=== PATIENT | male | born 2005 | race Caucasian/White ===

== ENCOUNTER 2024-03-31 12:35 | Emergency (ER) | payer BC, OTHER ==
[~2024-03-31] VITALS: Ht 175.3 cm; Wt 73.1 kg
[2024-03-31] MEDS ORDERED: MELO15TA28 PO (14:45)
[2024-03-31 14:47] VITALS: BP 133/70; TEMP 97; O2SAT 99
== END 2024-03-31 14:52 | disposition home or self-care (01) ==
LOC: M ED 12:35
DX: S93.402A Sprain of unspecified ligament of left ankle, initial encounter (principal); Y92.9 Unspecified place or not applicable; Y93.67 Activity, basketball; Y99.9 Unspecified external cause status; Z79.899 Other long term (current) drug therapy

== ENCOUNTER 2024-06-28 20:49 | Emergency (ER) | payer BC ==
[~2024-06-28] VITALS: Ht 175.3 cm; Wt 75.4 kg
[~2024-06-28 20:49] MED LIST: MELO15TA28 PO
[2024-06-29 01:54] VITALS: BP 140/89; TEMP 97; O2SAT 99
== END 2024-06-29 05:39 | disposition left against medical advice (07) ==
LOC: M ED 20:49
DX: Z53.21 Procedure and treatment not carried out due to patient leaving prior to being seen by health care provider (principal)

== ENCOUNTER 2024-10-14 09:41 | Outpatient (RCR) | payer OTHER | END 2024-10-19 | LOC: M PT 09:41 | PROVIDERS: ATTEND Physician Assistant | DX: M54.50 Low back pain, unspecified (principal); R20.2 Paresthesia of skin; R53.1 Weakness; M54.6 Pain in thoracic spine; R20.0 Anesthesia of skin; M54.2 Cervicalgia ==

== ENCOUNTER 2024-11-11 12:45 | Outpatient (RCR) | payer OTHER | END 2024-11-19 | LOC: M PT 12:45 | PROVIDERS: ATTEND Physician Assistant | DX: M54.50 Low back pain, unspecified (principal); M54.2 Cervicalgia ==

== ENCOUNTER 2025-01-19 06:21 | Emergency (ER) | payer OTHER ==
[~2025-01-19] VITALS: Ht 175.3 cm; Wt 75.4 kg
[2025-01-19 09:49] LABS: BASO % 0.7 % (0.0-1.0); EOS # 0.2 10^3/uL (0.0-0.5); EOS % 2.8 % (0.0-3.0); HEMATOCRIT 46.9 % (42.0-52.0); LYMPH # 1.4 10^3/uL (1.5-5.0); LYMPH % 24.3 % (24.0-44.0); MEAN CORPUSCULAR HEMOGLOBIN 28.9 pg (27.0-33.0); MEAN CORPUSCULAR HGB CONC 34.1 g/dl (32.0-36.5); MEAN CORPUSCULAR VOLUME 84.8 fl (80.0-96.0); MONO # 0.3 10^3/uL (0.0-0.8); MONO % 5.2 % (2.0-8.0); NEUTROPHILS # 3.8 10^3/uL (1.5-8.5); NEUTROPHILS % 66.8 % (36.0-66.0); PLATELET COUNT, AUTOMATED 229 10^3/uL (150-450); RED BLOOD COUNT 5.53 10^6/uL (4.30-6.10); WHITE BLOOD COUNT 5.6 10^3/uL (4.0-10.0)
[2025-01-19] MEDS: KETOROLAC 60MG 2ML VIAL IM ONE (10:00)
[2025-01-19] MEDS: CYCLOBENZAPRINE 10MG TABLET PO ONE (10:00)
[2025-01-19 10:13] LABS: BLOOD UREA NITROGEN 13 MG/DL (9-23); CALCIUM LEVEL 9.6 MG/DL (8.5-10.1); CARBON DIOXIDE LEVEL 29 MMOL/L (20-31); CHLORIDE LEVEL 107 MMOL/L (98-107); GLUCOSE, FASTING 88 MG/DL (60-100); POTASSIUM SERUM 4.2 MMOL/L (3.5-5.1); SODIUM LEVEL 143 MMOL/L (136-145)
[2025-01-19] MEDS ORDERED: IBUP80TA PO (10:25)
[2025-01-19] MEDS ORDERED: CYCL-707 PO (10:25)
[2025-01-19 10:46] VITALS: BP 126/67; TEMP 98.5; O2SAT 99
== END 2025-01-19 10:57 | disposition home or self-care (01) ==
LOC: M ED 06:21
DX: M51.16 Intervertebral disc disorders with radiculopathy, lumbar region (principal); S39.012A Strain of muscle, fascia and tendon of lower back, initial encounter; Y92.9 Unspecified place or not applicable; Y93.9 Activity, unspecified; Y99.9 Unspecified external cause status; F10.10 Alcohol abuse, uncomplicated; Z79.1 Long term (current) use of non-steroidal anti-inflammatories (NSAID); Z79.899 Other long term (current) drug therapy
CPT/HCPCS: 70450; 72110; 72125; 80048; 85025; 96372; 99283; J1885

== ENCOUNTER 2025-01-24 11:52 | Emergency (ER) | payer OTHER ==
[~2025-01-24] VITALS: Ht 175.3 cm; Wt 72.6 kg
[~2025-01-24 11:52] MED LIST changes: +CYCL-707 PO; +IBUP80TA PO
[2025-01-24 12:34] LABS: BASO % 0.5 % (0.0-1.0); EOS # 0.1 10^3/uL (0.0-0.5); EOS % 2.3 % (0.0-3.0); HEMOGLOBIN 16.7 g/dl (13.5-17.5); LYMPH # 1.5 10^3/uL (1.5-5.0); LYMPH % 26.5 % (24.0-44.0); MEAN CORPUSCULAR HEMOGLOBIN 28.8 pg (27.0-33.0); MEAN CORPUSCULAR HGB CONC 34.1 g/dl (32.0-36.5); MEAN CORPUSCULAR VOLUME 84.6 fl (80.0-96.0); MONO # 0.3 10^3/uL (0.0-0.8); MONO % 5.7 % (2.0-8.0); NEUTROPHILS # 3.7 10^3/uL (1.5-8.5); NEUTROPHILS % 64.8 % (36.0-66.0); PLATELET COUNT, AUTOMATED 246 10^3/uL (150-450); RED BLOOD COUNT 5.79 10^6/uL (4.30-6.10); WHITE BLOOD COUNT 5.8 10^3/uL (4.0-10.0)
[2025-01-24 14:14] LABS: ALKALINE PHOSPHATASE 91 U/L (40-129); ALT/SGPT 26 U/L (7.0-40); AST/SGOT 26 U/L (<34); BILIRUBIN,DIRECT 0.4 MG/DL (<0.4); BILIRUBIN,TOTAL 1.3 MG/DL (0.3-1.2); BLOOD UREA NITROGEN 15 MG/DL (9-23); CALCIUM LEVEL 9.9 MG/DL (8.5-10.1); CARBON DIOXIDE LEVEL 26 MMOL/L (20-31); CHLORIDE LEVEL 106 MMOL/L (98-107); CK-MB VALUE MASS 2.4 NG/ML (<3.6); CPK CREATINE PHOSPHOKINASE 221 U/L (46-171); CREATININE FOR GFR 1.09 MG/DL (0.70-1.30); GLUCOSE, FASTING 97 MG/DL (60-100); MAGNESIUM LEVEL 2.1 MG/DL (1.8-2.4); MB/CK RELATIVE INDEX 1.08 (< OR =4); POTASSIUM SERUM 4.5 MMOL/L (3.5-5.1); SODIUM LEVEL 142 MMOL/L (136-145); TOTAL PROTEIN 8.2 G/DL (5.7-8.2)
[2025-01-24] MEDS: NS (Normal Saline) 0.9% 1,000 ML IV ONE (16:04)
[2025-01-24] MEDS: ACETAMINOPHEN *IV* 1,000 MG in IV 1 EA IV ONE (16:04)
[2025-01-24] MEDS: KETOROLAC 30 MG/ML 1ML VIAL IV ONE (16:04)
[2025-01-24 16:30] VITALS: TEMP 97
[2025-01-24] MEDS: methylPREDNISolone 125MG 2ML VIAL IV ONE (17:49)
[2025-01-24 20:24] LABS: C REACTIVE PROTEIN QUANTITATIV < 0.50 MG/DL (<1.0)
[2025-01-24 20:31] LABS: ERYTHROCYTE SEDIMENTATION RATE 4 mm/hr (0-15)
[2025-01-24 20:45] VITALS: BP 140/69
[2025-01-24] MEDS ORDERED: PRED20TA PO (20:51)
[2025-01-24] MEDS ORDERED: HOLTER MONITOR XX (20:51)
[2025-01-24 21:00] VITALS: O2SAT 96
== END 2025-01-24 21:18 | disposition home or self-care (01) ==
LOC: M ED 11:52
DX: R55 Syncope and collapse (principal); M13.0 Polyarthritis, unspecified
CPT/HCPCS: 80048; 80076; 82550; 82553; 83735; 84484; 85025; 85652; 86140; 93005; 96365; 96366; 96375; 99285; J0131; J1885; J2919

== ENCOUNTER → 2025-02-21 | Outpatient (CLI) | payer OTHER ==
[~2025-02-21] MED LIST changes: +HOLTER MONITOR XX; +PRED20TA PO
== END ==
LOC: M PLARAD 12:30
PROVIDERS: ATTEND Student in an Organized Health Care Education/Training Program
DX: M47.26 Other spondylosis with radiculopathy, lumbar region (principal); M51.26 Other intervertebral disc displacement, lumbar region

== ENCOUNTER 2025-09-15 12:31 | Inpatient (IN) | payer OTHER ==
[~2025-09-15] VITALS: Ht 175.3 cm; Wt 86.0 kg
[2025-09-15] MEDS: LORazepam 1 MG TAB PO STA (13:03)
[2025-09-15 13:19] LABS: PLATELET COUNT, AUTOMATED 233 10^3/uL (150-450)
[2025-09-15 13:23] LABS: AMPHETAMINES LEVEL URINE NEGATIVE (NEGATIVE); BARBITURATES URINE NEGATIVE (NEGATIVE); BENZODIAZEPINES URINE NEGATIVE (NEGATIVE); CANNABINOIDS URINE NEGATIVE (NEGATIVE); COCAINE METABOLITE URINE NEGATIVE (NEGATIVE); METHADONE URINE NEGATIVE (NEGATIVE); OPIATES URINE NEGATIVE (NEGATIVE); PHENCYCLIDINE URINE NEGATIVE (NEGATIVE)
[2025-09-15 13:50] LABS: ETHYL ALCOHOL (ETHANOL) 0.004 % (0.000-0.010)
[2025-09-15 13:52] LABS: ALT/SGPT 34 U/L (7.0-40); AST/SGOT 32 U/L (<34); CALCIUM LEVEL 9.6 MG/DL (8.5-10.1); CARBON DIOXIDE LEVEL 25 MMOL/L (20-31); CHLORIDE LEVEL 105 MMOL/L (98-107); CREATININE FOR GFR 0.91 MG/DL (0.70-1.30); GLOMERULAR FILTRATION RATE > 90.0 (>60); POTASSIUM SERUM 3.9 MMOL/L (3.5-5.1); SALICYLATE LEVEL < 3.0 MG/DL (<30); SODIUM LEVEL 141 MMOL/L (136-145)
[2025-09-15] MEDS ORDERED: BUSP5TA PO (14:40)
[2025-09-15] MEDS ORDERED: OXCA150T21 PO (14:40)
[2025-09-15] MEDS ORDERED: TRAZ-252 PO (14:40)
[2025-09-15] MEDS ORDERED: FLUV50TA PO (14:40)
[2025-09-15] MEDS ORDERED: ATIV1TAB10 PO (14:40)
[2025-09-15] MEDS ORDERED: HYDR50TA70 PO (14:40)
[2025-09-15] MEDS ORDERED: RISP0.5T82 PO (14:40)
[2025-09-15] MEDS ORDERED: HOME MED LIST COMPLETE! XX SCH (14:45)
[2025-09-15] MEDS ORDERED: MOM 30 ML SUSPENSION UDC PO PRN (16:35)
[2025-09-15] MEDS ORDERED: MAALOX 30 ML SUSP *UDC PO PRN (16:35)
[2025-09-15] MEDS: HALOPERIDOL 5 MG TAB PO PRN (18:17)
[2025-09-15] MEDS: OLANZapine 5 MG TAB PO PRN (18:17)
[2025-09-15] MEDS: NICOTINE 14 MG/24 HR TRANSDERMAL TD SCH (18:17)
[2025-09-15 18:33] VITALS: BP 133/75; TEMP 98.6; O2SAT 98
[2025-09-15] MEDS: traZODone 50 MG TAB PO PRN (20:17)
[2025-09-15] MEDS: risperiDONE 0.5 MG TAB PO SCH (20:17)
[2025-09-16 06:34] VITALS: BP 120/59; TEMP 98; O2SAT 96
[2025-09-16] MEDS: busPIRone 5 MG TAB PO SCH (09:32)
[2025-09-16] MEDS: LORazepam 1 MG TAB PO PRN (13:39)
[2025-09-16 15:02] VITALS: BP 147/70; TEMP 97.8; O2SAT 100
[2025-09-17 06:50] VITALS: BP 139/63; TEMP 97.9; O2SAT 98
[2025-09-17] MEDS: risperiDONE 0.5 MG TAB PO ONE (12:39)
[2025-09-17 15:16] VITALS: BP 146/63; TEMP 98.5; O2SAT 98
[2025-09-17 17:16] VITALS: BP 154/92; O2SAT 99
[2025-09-17 17:25] VITALS: BP 142/80; O2SAT 98
[2025-09-17 17:35] VITALS: BP 154/92; O2SAT 99
[2025-09-17] MEDS: LORazepam 1 MG TAB PO ONE (17:41)
[2025-09-17] MEDS: RISPERIDONE 1 MG TAB PO SCH (21:03)
[2025-09-18 06:28] VITALS: BP 132/63; TEMP 98.4; O2SAT 96
[2025-09-18 11:11] VITALS: BP 142/91; TEMP 98.3; O2SAT 95
[2025-09-18 15:44] VITALS: BP 130/80; TEMP 97.9; O2SAT 100
[2025-09-19 06:39] VITALS: BP 120/55; TEMP 97.8; O2SAT 99
[2025-09-19 15:45] VITALS: BP 133/68; O2SAT 97
[2025-09-20 06:00] VITALS: BP 105/60; TEMP 97.6; O2SAT 97
[2025-09-20 15:54] VITALS: BP 138/80; TEMP 98; O2SAT 95
[2025-09-21 06:33] VITALS: BP 129/65; TEMP 98; O2SAT 100
[2025-09-21 09:25] VITALS: BP 138/73; O2SAT 94
[2025-09-21] MEDS: IBUPROFEN 400 MG TAB PO PRN (14:30)
[2025-09-21] MEDS ORDERED: LORazepam 0.5 MG TAB PO PRN (14:55)
[2025-09-21 15:50] VITALS: BP 133/70; TEMP 97; O2SAT 97
[2025-09-22 06:31] VITALS: BP 129/71; TEMP 98.3; O2SAT 97
[2025-09-22] MEDS: LORazepam 0.5 MG TAB PO ONE (09:34)
[2025-09-22 09:40] VITALS: BP 141/91; TEMP 98.3; O2SAT 97
[2025-09-22 10:08] LABS: PLATELET COUNT, AUTOMATED 239 10^3/uL (150-450)
[2025-09-22 10:23] LABS: ALT/SGPT 37 U/L (7.0-40); AST/SGOT 34 U/L (<34); CALCIUM LEVEL 9.5 MG/DL (8.5-10.1); CARBON DIOXIDE LEVEL 26 MMOL/L (20-31); CHLORIDE LEVEL 102 MMOL/L (98-107); CPK CREATINE PHOSPHOKINASE 160 U/L (46-171); CREATININE FOR GFR 1.12 MG/DL (0.70-1.30); GLOMERULAR FILTRATION RATE > 90.0 (>60); MAGNESIUM LEVEL 1.8 MG/DL (1.8-2.4); POTASSIUM SERUM 3.9 MMOL/L (3.5-5.1); SODIUM LEVEL 139 MMOL/L (136-145)
[2025-09-22] MEDS: SODIUM CHLORIDE NASAL 0.65% SPRAY BTL (OCEAN) PRN (15:38)
[2025-09-22] MEDS: TOPIRAMATE 25 MG TAB PO SCH (20:07)
[2025-09-23 06:12] VITALS: BP 123/65; TEMP 98.1; O2SAT 98
[2025-09-23] MEDS: ONDANSETRON 4MG ORAL DISINTEGRATING TAB SL PRN (07:54)
[2025-09-23 08:00] VITALS: BP 142/87; TEMP 98.2; O2SAT 96
[2025-09-23] MEDS: LORazepam 1 MG TAB PO PRN (08:09)
[2025-09-23] MEDS: ESCITALOPRAM OXALATE 5 MG TABLET PO SCH (09:38)
[2025-09-23 17:58] VITALS: BP 151/72; TEMP 97; O2SAT 97
[2025-09-23] MEDS: TOPIRAMATE 25 MG TAB PO SCH (20:15)
[2025-09-24 06:19] VITALS: BP 134/71; TEMP 97.5; O2SAT 100
[2025-09-24] MEDS: ACETAMINOPHEN 325 MG TAB PO PRN (15:09)
[2025-09-24 18:00] VITALS: BP 158/86; TEMP 98.4; O2SAT 98
[2025-09-24 18:55] VITALS: BP 133/81
[2025-09-24 19:38] VITALS: BP 133/81; TEMP 98.4; O2SAT 98
[2025-09-25 06:30] VITALS: BP 127/67; TEMP 97.6; O2SAT 97
[2025-09-25] MEDS ORDERED: TOPA1TAB PO (09:19)
[2025-09-25] MEDS ORDERED: LEXA5TAB13 PO (09:19)
[2025-09-25] MEDS ORDERED: HYDR50TA70 PO (09:19)
[2025-09-25] MEDS ORDERED: ATIV1TAB7 PO (09:19)
[2025-09-27] MEDS ORDERED: LEXA5TAB13 PO (00:35)
== END 2025-09-25 14:02 | disposition home or self-care (01) | DRG 756 ==
LOC: M ED 12:31 → M ED INP 16:32 → M PSY 17:15
PROVIDERS: ADMIT Internal Medicine; ATTEND General Practice
DX: F41.1 Generalized anxiety disorder (principal); R56.9 Unspecified convulsions; R45.851 Suicidal ideations; F31.81 Bipolar II disorder; F42.9 Obsessive-compulsive disorder, unspecified; Z91.51 Personal history of suicidal behavior; Z81.8 Family history of other mental and behavioral disorders; Z79.899 Other long term (current) drug therapy

== ENCOUNTER 2025-09-26 19:12 | Inpatient (IN) | payer OTHER ==
[~2025-09-26] VITALS: Ht 175.3 cm; Wt 100.4 kg
[~2025-09-26 19:12] MED LIST changes: +ATIV1TAB10 PO; +ATIV1TAB7 PO; +BUSP5TA PO; +FLUV50TA PO; +HYDR50TA70 PO; +LEXA5TAB13 PO; +LORA1TAB23 PO; +OXCA150T21 PO; +RISP0.5T82 PO; +TOPA1TAB PO; +TRAZ-252 PO
[2025-09-26 21:58] VITALS: BP 143/78; TEMP 98; O2SAT 96
[2025-09-26] MEDS ORDERED: ACETYLCYSTEINE 0 MG in D5W 500 ML IV ONE (22:25)
[2025-09-26] MEDS ORDERED: ACETYLCYSTEINE 0 MG in D5W 1,000 ML IV ONE (22:25)
[2025-09-26] MEDS: ONDANSETRON 4MG/2ML VIAL IV PRN (23:43)
[2025-09-26] MEDS: NS (Normal Saline) 0.9% 1,000 ML IV SCH (23:43)
[2025-09-26] MEDS: LORazepam 1 MG TAB PO PRN (23:51)
[2025-09-27] VITALS (7 sets, daily range): BP systolic 116–150; BP diastolic 59–78; TEMP 98.1–98.9; O2SAT 94–97
[2025-09-27] MEDS ORDERED: TOPI-256 PO (00:35)
[2025-09-27] MEDS ORDERED: ATIV1TAB10 PO (00:35)
[2025-09-27] MEDS ORDERED: ATIV1TAB7 PO (00:35)
[2025-09-27] MEDS ORDERED: LEXA5TAB13 PO ×2 (00:35→22:57)
[2025-09-27] MEDS ORDERED: TRAZ1TAB11 PO (00:35)
[2025-09-27] MEDS ORDERED: HYDR50TA70 PO (00:35)
[2025-09-27] MEDS ORDERED: HOME MED LIST COMPLETE! XX SCH (00:40)
[2025-09-27 00:47] LABS: PLATELET COUNT, AUTOMATED 278 10^3/uL (150-450)
[2025-09-27 01:05] LABS: ALT/SGPT 104 U/L (7.0-40); AST/SGOT 62 U/L (<34); CALCIUM LEVEL 8.9 MG/DL (8.5-10.1); CARBON DIOXIDE LEVEL 23 MMOL/L (20-31); CHLORIDE LEVEL 103 MMOL/L (98-107); CREATININE FOR GFR 0.88 MG/DL (0.70-1.30); GLOMERULAR FILTRATION RATE > 90.0 (>60); POTASSIUM SERUM 3.6 MMOL/L (3.5-5.1); SODIUM LEVEL 138 MMOL/L (136-145)
[2025-09-27 01:26] LABS: INR 1.29
[2025-09-27 03:53] LABS: ALT/SGPT 98 U/L (7.0-40); AST/SGOT 59 U/L (<34); CALCIUM LEVEL 9.2 MG/DL (8.5-10.1); CARBON DIOXIDE LEVEL 22 MMOL/L (20-31); CHLORIDE LEVEL 106 MMOL/L (98-107); CREATININE FOR GFR 0.96 MG/DL (0.70-1.30); GLOMERULAR FILTRATION RATE > 90.0 (>60); POTASSIUM SERUM 3.6 MMOL/L (3.5-5.1); SODIUM LEVEL 140 MMOL/L (136-145)
[2025-09-27 08:24] LABS: ALT/SGPT 100 U/L (7.0-40); AST/SGOT 57 U/L (<34); CALCIUM LEVEL 8.6 MG/DL (8.5-10.1); CARBON DIOXIDE LEVEL 22 MMOL/L (20-31); CHLORIDE LEVEL 105 MMOL/L (98-107); CREATININE FOR GFR 1.01 MG/DL (0.70-1.30); GLOMERULAR FILTRATION RATE > 90.0 (>60); POTASSIUM SERUM 3.3 MMOL/L (3.5-5.1); SODIUM LEVEL 139 MMOL/L (136-145)
[2025-09-27] MEDS: POTASSIUM CHLORIDE 10MEQ SR TABLET PO ONE (08:59)
[2025-09-27] MEDS: PANTOPRAZOLE 40MG TAB PO SCH (09:00)
[2025-09-27 09:06] LABS: ETHYL ALCOHOL (ETHANOL) < 0.003 % (0.000-0.010)
[2025-09-27 09:08] LABS: SALICYLATE LEVEL < 3.0 MG/DL (<30)
[2025-09-27 10:06] LABS: AMPHETAMINES LEVEL URINE NEGATIVE (NEGATIVE); BARBITURATES URINE NEGATIVE (NEGATIVE); BENZODIAZEPINES URINE NEGATIVE (NEGATIVE); CANNABINOIDS URINE NEGATIVE (NEGATIVE); COCAINE METABOLITE URINE NEGATIVE (NEGATIVE); METHADONE URINE NEGATIVE (NEGATIVE); OPIATES URINE NEGATIVE (NEGATIVE); PHENCYCLIDINE URINE NEGATIVE (NEGATIVE)
[2025-09-27 11:39] LABS: ALT/SGPT 104 U/L (7.0-40); AST/SGOT 58 U/L (<34); CALCIUM LEVEL 8.7 MG/DL (8.5-10.1); CARBON DIOXIDE LEVEL 22 MMOL/L (20-31); CHLORIDE LEVEL 106 MMOL/L (98-107); CREATININE FOR GFR 1.00 MG/DL (0.70-1.30); GLOMERULAR FILTRATION RATE > 90.0 (>60); POTASSIUM SERUM 3.6 MMOL/L (3.5-5.1); SODIUM LEVEL 140 MMOL/L (136-145)
[2025-09-27 15:38] LABS: INR 1.28
[2025-09-27 15:39] LABS: ALT/SGPT 113 U/L (7.0-40); AST/SGOT 64 U/L (<34); CALCIUM LEVEL 9.2 MG/DL (8.5-10.1); CARBON DIOXIDE LEVEL 21 MMOL/L (20-31); CHLORIDE LEVEL 110 MMOL/L (98-107); CREATININE FOR GFR 0.94 MG/DL (0.70-1.30); GLOMERULAR FILTRATION RATE > 90.0 (>60); POTASSIUM SERUM 3.8 MMOL/L (3.5-5.1); SODIUM LEVEL 144 MMOL/L (136-145)
[2025-09-27] MEDS ORDERED: TRAZ-252 PO (22:59)
== END 2025-09-27 17:12 | DRG 812 ==
LOC: M ICU 22:22
PROVIDERS: ADMIT Internal Medicine; ATTEND Internal Medicine Critical Care Medicine
DX: T39.1X2A Poisoning by 4-Aminophenol derivatives, intentional self-harm, initial encounter (principal); F22 Delusional disorders; F32.9 Major depressive disorder, single episode, unspecified; R11.2 Nausea with vomiting, unspecified; F41.9 Anxiety disorder, unspecified; G80.9 Cerebral palsy, unspecified; E87.6 Hypokalemia; Z79.899 Other long term (current) drug therapy

== ENCOUNTER 2025-09-27 13:33 | Inpatient (IN) | payer OTHER ==
[~2025-09-27] VITALS: Ht 175.3 cm; Wt 100.4 kg
[~2025-09-27 13:33] MED LIST changes: +TOPI-256 PO; +TRAZ1TAB11 PO
[2025-09-27] MEDS ORDERED: MOM 30 ML SUSPENSION UDC PO PRN (15:30)
[2025-09-27] MEDS ORDERED: MAALOX 30 ML SUSP *UDC PO PRN (15:30)
[2025-09-27] MEDS ORDERED: IBUPROFEN 400 MG TAB PO PRN (15:30)
[2025-09-27] MEDS ORDERED: ACETAMINOPHEN 325 MG TAB PO PRN (15:30)
[2025-09-27 18:15] VITALS: BP 132/90; TEMP 98.4; O2SAT 94
[2025-09-27] MEDS: traZODone 50 MG TAB PO PRN (20:14)
[2025-09-27] MEDS ORDERED: LEXA5TAB13 PO (22:57)
[2025-09-27] MEDS ORDERED: TRAZ-252 PO (22:59)
[2025-09-27] MEDS ORDERED: HOME MED LIST COMPLETE! XX SCH (23:00)
[2025-09-28] MEDS ORDERED: NICOTINE 14 MG/24 HR TRANSDERMAL TD SCH (09:00)
[2025-09-28 11:40] VITALS: BP 166/85; TEMP 97.9; O2SAT 97
[2025-09-28 15:50] VITALS: BP 143/81; TEMP 98.4; O2SAT 97
[2025-09-28 16:36] VITALS: BP_SYST 125; BP_SYST 167; BP_DIAS 60; BP_DIAS 70; TEMP 97.6; O2SAT 97
[2025-09-28] MEDS: diphenhydrAMINE 50 MG/ML VIAL IM STA (16:38)
[2025-09-28] MEDS: HALOPERIDOL LACTATE 5 MG/ML VIAL IM STA (16:39)
[2025-09-28 17:00] VITALS: BP 167/70; TEMP 98.4; O2SAT 97
[2025-09-28 17:15] VITALS: BP 125/60; TEMP 97.6; O2SAT 97
[2025-09-28 17:30] VITALS: BP 119/73; TEMP 97.7; O2SAT 94
[2025-09-29 06:57] VITALS: BP 134/73; TEMP 98.5; O2SAT 96
[2025-09-29 09:02] VITALS: BP 142/86; O2SAT 99
[2025-09-29] MEDS ORDERED: PROPOFOL 1,000 MG/100 ML VIAL As Ordered ONE (09:19)
[2025-09-29 09:29] VITALS: O2SAT 99
== END 2025-09-29 09:29 | disposition short-term general hospital (02) | DRG 753 ==
LOC: M PSY 17:20
PROVIDERS: ADMIT Psychiatry & Neurology Addiction Psychiatry; ATTEND Internal Medicine
DX: F31.4 Bipolar disorder, current episode depressed, severe, without psychotic features (principal); Z78.1 Physical restraint status; F60.3 Borderline personality disorder; K13.79 Other lesions of oral mucosa; R04.0 Epistaxis; F41.1 Generalized anxiety disorder; Z91.51 Personal history of suicidal behavior; Z79.899 Other long term (current) drug therapy; X83.8XXA Intentional self-harm by other specified means, initial encounter; Y99.8 Other external cause status

== ENCOUNTER 2025-09-29 09:22 | Inpatient (IN) | payer OTHER ==
[2025-09-29] VITALS (32 sets, daily range): BP systolic 101–157; BP diastolic 59–103; TEMP 97.8–97.9; O2SAT 95–100
[2025-09-29] MEDS ORDERED: dexmedeTOMIDine (4 MCG/ML) 200 MCG/50 ML BTL As Ordered ONE (10:12)
[2025-09-29] MEDS ORDERED: ISOVUE-370 76% 100 ML VIAL As Ordered ONE (10:24)
[2025-09-29 10:27] LABS: ABG BASE EXCESS -1.1 (-2.0-2.0); ABG HCO3 23.3 MMOL/L (22.0-26.0); ABG O2 SATURATION 99.6 % (95.0-99.0); ABG PARTIAL PRESSURE CO2 38.0 mmHg (35.0-45.0); ABG PARTIAL PRESSURE O2 202.8 mmHg (75.0-100.0); ABG STANDARD HCO3 23.6 MMOL/L. (22.0-26.0); ABG TOTAL CO2 24.4 MMOL/L (22.0-29.0); ABG pH (ARTERIAL) 7.405 UNITS (7.350-7.450)
[2025-09-29] MEDS: D5W/0.45% SODIUM CHLORIDE 1,000 ML IV SCH (10:37)
[2025-09-29] MEDS: PANTOPRAZOLE 40MG VIAL IV SCH (10:37)
[2025-09-29] MEDS: dexmedeTOMidine 200 MCG in IV 1 EA IV SCH (10:47)
[2025-09-29 11:02] LABS: BASO # 0.0 10^3/uL (0.0-0.2); BASO % 0.4 % (0.0-1.0); EOS # 0.0 10^3/uL (0.0-0.5); EOS % 0.2 % (0.0-3.0); LYMPH # 0.6 10^3/uL (1.5-5.0); LYMPH % 6.2 % (24.0-44.0); MONO # 0.9 10^3/uL (0.0-0.8); MONO % 9.3 % (2.0-8.0); NEUTROPHILS # 8.3 10^3/uL (1.5-8.5); NEUTROPHILS % 83.6 % (36.0-66.0); PLATELET COUNT, AUTOMATED 213 10^3/uL (150-450)
[2025-09-29 11:23] LABS: INR 1.25
[2025-09-29 11:53] LABS: ALT/SGPT 4518 U/L (7.0-40); AST/SGOT 2465 U/L (<34); CALCIUM LEVEL 8.6 MG/DL (8.5-10.1); CARBON DIOXIDE LEVEL 26 MMOL/L (20-31); CHLORIDE LEVEL 106 MMOL/L (98-107); CREATININE FOR GFR 0.91 MG/DL (0.70-1.30); GLOMERULAR FILTRATION RATE > 90.0 (>60); MAGNESIUM LEVEL 1.8 MG/DL (1.8-2.4); POTASSIUM SERUM 3.8 MMOL/L (3.5-5.1); SODIUM LEVEL 143 MMOL/L (136-145)
[2025-09-29] MEDS ORDERED: dexmedeTOMidine 200 MCG in IV 1 EA IV SCH (12:22)
[2025-09-29 12:29] LABS: KETONE, URINE AUTO RFX NEGATIVE (NEGATIVE); LEUKOCYTE ESTERASE UR AUTO RFX NEGATIVE (NEGATIVE); MUCUS, URINE RFX SMALL (NEGATIVE); NITRITE, URINE AUTO RFX NEGATIVE (NEGATIVE); RBC, URINE AUTO RFX 4 /HPF (0-3); SQUAM EPITHELIAL CELL UR AURFX 0 /HPF (0-6); WBC, URINE AUTO RFX 3 /HPF (0-3)
[2025-09-29] MEDS: diphenhydrAMINE 50 MG/ML VIAL IV ONE (12:50)
[2025-09-29] MEDS: HEPARIN SOD 5000 UNITS/ML 1 ML VIAL/SYRINGE SC SCH (14:06)
[2025-09-29 14:56] LABS: SALICYLATE LEVEL < 3.0 MG/DL (<30)
[2025-09-29 15:16] LABS: AMPHETAMINES LEVEL URINE NEGATIVE (NEGATIVE); BARBITURATES URINE NEGATIVE (NEGATIVE); BENZODIAZEPINES URINE NEGATIVE (NEGATIVE); COCAINE METABOLITE URINE NEGATIVE (NEGATIVE)
[2025-09-29 15:17] LABS: CANNABINOIDS URINE NEGATIVE (NEGATIVE); METHADONE URINE NEGATIVE (NEGATIVE); OPIATES URINE NEGATIVE (NEGATIVE); PHENCYCLIDINE URINE NEGATIVE (NEGATIVE)
[2025-09-29 15:37] LABS: HEPATITIS C VIRUS ABY INDEX < 0.02 INDEX (<0.8)
[2025-09-30] VITALS (45 sets, daily range): BP systolic 106–137; BP diastolic 55–78; TEMP 97.1–98.4; O2SAT 95–100
[2025-09-30 05:22] LABS: BASO # 0.0 10^3/uL (0.0-0.2); BASO % 0.1 % (0.0-1.0); EOS # 0.0 10^3/uL (0.0-0.5); EOS % 0.0 % (0.0-3.0); LYMPH # 0.6 10^3/uL (1.5-5.0); LYMPH % 8.9 % (24.0-44.0); MONO # 0.3 10^3/uL (0.0-0.8); MONO % 3.5 % (2.0-8.0); NEUTROPHILS # 6.3 10^3/uL (1.5-8.5); NEUTROPHILS % 87.2 % (36.0-66.0); PLATELET COUNT, AUTOMATED 239 10^3/uL (150-450)
[2025-09-30 05:57] LABS: INR 1.14
[2025-09-30 06:06] LABS: ALT/SGPT 3430 U/L (7.0-40); AST/SGOT 1214 U/L (<34); CALCIUM LEVEL 8.8 MG/DL (8.5-10.1); CARBON DIOXIDE LEVEL 24 MMOL/L (20-31); CHLORIDE LEVEL 108 MMOL/L (98-107); CREATININE FOR GFR 0.77 MG/DL (0.70-1.30); GLOMERULAR FILTRATION RATE > 90.0 (>60); MAGNESIUM LEVEL 2.2 MG/DL (1.8-2.4); POTASSIUM SERUM 4.2 MMOL/L (3.5-5.1); SODIUM LEVEL 143 MMOL/L (136-145)
[2025-09-30 10:36] LABS: INR 1.2
[2025-09-30 10:45] LABS: AST/SGOT 1002.0 U/L (<34); CALCIUM LEVEL 8.7 MG/DL (8.5-10.1); CARBON DIOXIDE LEVEL 26 MMOL/L (20-31); CHLORIDE LEVEL 107 MMOL/L (98-107); CPK CREATINE PHOSPHOKINASE 266 U/L (46-171); CREATININE FOR GFR 0.77 MG/DL (0.70-1.30); GLOMERULAR FILTRATION RATE > 90.0 (>60); POTASSIUM SERUM 3.9 MMOL/L (3.5-5.1); SODIUM LEVEL 143 MMOL/L (136-145)
[2025-10-01] VITALS (15 sets, daily range): BP systolic 111–121; BP diastolic 55–59; TEMP 96.9–98.9; O2SAT 95–99
[2025-10-01 04:38] LABS: BASO # 0.0 10^3/uL (0.0-0.2); BASO % 0.1 % (0.0-1.0); EOS # 0.0 10^3/uL (0.0-0.5); EOS % 0.0 % (0.0-3.0); LYMPH # 1.3 10^3/uL (1.5-5.0); LYMPH % 11.5 % (24.0-44.0); MONO # 0.7 10^3/uL (0.0-0.8); MONO % 6.5 % (2.0-8.0); NEUTROPHILS # 9.4 10^3/uL (1.5-8.5); NEUTROPHILS % 81.6 % (36.0-66.0); PLATELET COUNT, AUTOMATED 242 10^3/uL (150-450)
[2025-10-01 05:22] LABS: ALT/SGPT 2318 U/L (7.0-40); AST/SGOT 425 U/L (<34); CALCIUM LEVEL 8.7 MG/DL (8.5-10.1); CARBON DIOXIDE LEVEL 24 MMOL/L (20-31); CHLORIDE LEVEL 108 MMOL/L (98-107); CREATININE FOR GFR 0.76 MG/DL (0.70-1.30); GLOMERULAR FILTRATION RATE > 90.0 (>60); POTASSIUM SERUM 4.0 MMOL/L (3.5-5.1); SODIUM LEVEL 145 MMOL/L (136-145)
[2025-10-01 05:35] LABS: INR 1.09
[2025-10-01] MEDS ORDERED: ROCURONIUM BROMIDE 50MG/5ML VIAL ONE (08:32)
[2025-10-01] MEDS ORDERED: diphenhydrAMINE 50 MG/ML VIAL IM ONE (13:45)
[2025-10-01] MEDS ORDERED: HALOPERIDOL LACTATE 5 MG/ML VIAL IM ONE (13:45)
[2025-10-01 14:04] LABS: PLATELET COUNT, AUTOMATED 259 10^3/uL (150-450)
[2025-10-01 14:26] LABS: INR 1.04
[2025-10-01 14:55] LABS: ALT/SGPT 2116 U/L (7.0-40); AST/SGOT 360 U/L (<34); CALCIUM LEVEL 8.5 MG/DL (8.5-10.1); CARBON DIOXIDE LEVEL 26 MMOL/L (20-31); CHLORIDE LEVEL 108 MMOL/L (98-107); CREATININE FOR GFR 0.85 MG/DL (0.70-1.30); GLOMERULAR FILTRATION RATE > 90.0 (>60); POTASSIUM SERUM 3.5 MMOL/L (3.5-5.1); SODIUM LEVEL 145 MMOL/L (136-145)
== END 2025-10-01 14:12 | DRG 815 ==
LOC: M ICU 09:27
PROVIDERS: ADMIT Internal Medicine Critical Care Medicine; ATTEND Internal Medicine Critical Care Medicine
PROC: 02HV33Z Insertion of Infusion Device into Superior Vena Cava, Percutaneous Approach (ICD-10-PCS; principal; 2025-09-29)
PROC: 5A1945Z Respiratory Ventilation, 24-96 Consecutive Hours (ICD-10-PCS; 2025-09-29)
DX: T71.162A Asphyxiation due to hanging, intentional self-harm, initial encounter (principal); J96.01 Acute respiratory failure with hypoxia; R56.9 Unspecified convulsions; K76.89 Other specified diseases of liver; F41.1 Generalized anxiety disorder; F31.81 Bipolar II disorder; Z91.51 Personal history of suicidal behavior; F41.0 Panic disorder [episodic paroxysmal anxiety]; T14.91XA Suicide attempt, initial encounter

== ENCOUNTER 2025-10-01 11:46 | Inpatient (IN) | payer OTHER, MEDICAID ==
[~2025-10-01] VITALS: Ht 175.3 cm; Wt 82.9 kg
[2025-10-01] MEDS ORDERED: LORazepam 1 MG TAB PO PRN (12:55)
[2025-10-01] MEDS: HALOPERIDOL 5 MG TAB PO PRN (14:36)
[2025-10-01 15:40] VITALS: BP 133/67; TEMP 98.7; O2SAT 98
[2025-10-01] MEDS: HALOPERIDOL LACTATE 5 MG/ML VIAL IM STA (15:50)
[2025-10-01] MEDS: diphenhydrAMINE 50 MG/ML VIAL IM STA (15:50)
[2025-10-01 16:15] VITALS: BP 147/94; TEMP 98.6; O2SAT 96
[2025-10-01 17:15] VITALS: BP 179/95; TEMP 98.7; O2SAT 96
[2025-10-01 17:30] VITALS: BP 179/95; TEMP 98.7; O2SAT 96
[2025-10-01] MEDS: OLANZapine 5 MG TAB PO PRN (17:52)
[2025-10-01 18:15] VITALS: BP 147/80; TEMP 98.6
[2025-10-01 19:00] VITALS: BP 150/77; O2SAT 96
[2025-10-02] MEDS: NICOTINE 14 MG/24 HR TRANSDERMAL TD SCH (09:00)
[2025-10-02 09:10] LABS: BASO # 0.1 10^3/uL (0.0-0.2); BASO % 0.7 % (0.0-1.0); EOS # 0.1 10^3/uL (0.0-0.5); EOS % 1.7 % (0.0-3.0); LYMPH # 1.8 10^3/uL (1.5-5.0); LYMPH % 23.9 % (24.0-44.0); MONO # 0.6 10^3/uL (0.0-0.8); MONO % 8.4 % (2.0-8.0); NEUTROPHILS # 4.8 10^3/uL (1.5-8.5); NEUTROPHILS % 64.1 % (36.0-66.0); PLATELET COUNT, AUTOMATED 258 10^3/uL (150-450)
[2025-10-02 09:31] LABS: INR 0.92
[2025-10-02 09:39] LABS: C REACTIVE PROTEIN QUANTITATIV 0.52 MG/DL (<1.0)
[2025-10-02 10:12] LABS: ALT/SGPT 1712 U/L (7.0-40); AST/SGOT 248 U/L (<34); CALCIUM LEVEL 8.9 MG/DL (8.5-10.1); CARBON DIOXIDE LEVEL 26 MMOL/L (20-31); CHLORIDE LEVEL 104 MMOL/L (98-107); CREATININE FOR GFR 0.85 MG/DL (0.70-1.30); FREE T4 1.40 NG/DL (0.83-1.43); GLOMERULAR FILTRATION RATE > 90.0 (>60); POTASSIUM SERUM 3.7 MMOL/L (3.5-5.1); SODIUM LEVEL 141 MMOL/L (136-145); VITAMIN B12 LEVEL 1402 PG/ML (211-911)
[2025-10-02] MEDS: ESCITALOPRAM OXALATE 5 MG TABLET PO SCH (13:52)
[2025-10-02 15:08] VITALS: BP 148/70; TEMP 98.3; O2SAT 97
[2025-10-02] MEDS ORDERED: busPIRone 5 MG TAB PO SCH (16:00)
[2025-10-02] MEDS: traZODone 50 MG TAB PO PRN (21:26)
[2025-10-02] MEDS: LORazepam 1 MG TAB PO PRN (21:59)
[2025-10-03 07:41] LABS: ALT/SGPT 1317.0 U/L (7.0-40); AST/SGOT 203.0 U/L (<34)
[2025-10-03] MEDS: IBUPROFEN 400 MG TAB PO PRN (09:19)
[2025-10-03] MEDS: HALOPERIDOL 5 MG TAB PO ONE (15:05)
[2025-10-03] MEDS: LORazepam 1 MG TAB PO ONE (15:07)
[2025-10-03 16:20] VITALS: BP 154/98; TEMP 98.3; O2SAT 98
[2025-10-04 07:14] LABS: ALT/SGPT 904 U/L (7.0-40); AST/SGOT 118 U/L (<34); CALCIUM LEVEL 9.0 MG/DL (8.5-10.1); CARBON DIOXIDE LEVEL 26 MMOL/L (20-31); CHLORIDE LEVEL 105 MMOL/L (98-107); CREATININE FOR GFR 0.86 MG/DL (0.70-1.30); GLOMERULAR FILTRATION RATE > 90.0 (>60); POTASSIUM SERUM 4.4 MMOL/L (3.5-5.1); SODIUM LEVEL 141 MMOL/L (136-145)
[2025-10-04] MEDS: traZODone 100 MG TAB PO PRN (20:11)
[2025-10-05 00:22] LABS: ARSENIC BLOOD < 3 mcg/L (<23); LEAD BLOOD < 1.0 mcg/dL (<3.5); MERCURY BLOOD < 4 mcg/L (<=10)
[2025-10-05] MEDS: ESCITALOPRAM OXALATE 10 MG TABLET PO SCH (09:09)
[2025-10-05] MEDS: MAALOX 30 ML SUSP *UDC PO PRN (09:55)
[2025-10-05 18:31] VITALS: BP 147/83; O2SAT 96
[2025-10-06 06:41] VITALS: BP 142/72; TEMP 98.6; O2SAT 95
[2025-10-06 10:27] LABS: CERULOPLASMIN 18.0 mg/dL (14-30)
[2025-10-06] MEDS: ONDANSETRON 4MG ORAL DISINTEGRATING TAB PO PRN (12:12)
[2025-10-06 12:13] VITALS: BP 135/78; TEMP 98.6; O2SAT 99
[2025-10-06 16:16] VITALS: BP 134/79; TEMP 98; O2SAT 95
[2025-10-06 17:22] LABS: BORRELIA SPECIES DNA NOT DETECTED (NOT DETECT)
[2025-10-07 06:37] VITALS: BP 153/84; TEMP 98.4; O2SAT 96
[2025-10-07 15:52] VITALS: BP 156/88; TEMP 98.8; O2SAT 96
[2025-10-07 16:45] VITALS: BP 130/76; TEMP 97.5; O2SAT 97
[2025-10-08 15:21] VITALS: BP 135/88; TEMP 98.1; O2SAT 97
[2025-10-08 20:51] VITALS: BP 135/88; TEMP 98.1; O2SAT 97
[2025-10-09 08:10] LABS: ALT/SGPT 425 U/L (7.0-40); AST/SGOT 88 U/L (<34); CALCIUM LEVEL 9.1 MG/DL (8.5-10.1); CARBON DIOXIDE LEVEL 28 MMOL/L (20-31); CHLORIDE LEVEL 103 MMOL/L (98-107); CREATININE FOR GFR 1.04 MG/DL (0.70-1.30); GLOMERULAR FILTRATION RATE > 90.0 (>60); POTASSIUM SERUM 4.6 MMOL/L (3.5-5.1); SODIUM LEVEL 142 MMOL/L (136-145)
[2025-10-09 08:39] VITALS: BP 141/73; TEMP 98.2; O2SAT 97
[2025-10-09 16:33] VITALS: BP 135/78; TEMP 97.9; O2SAT 97
[2025-10-10] MEDS: MOM 30 ML SUSPENSION UDC PO PRN (10:40)
[2025-10-10 14:35] VITALS: BP 142/84; TEMP 98.3; O2SAT 97
[2025-10-10 16:20] VITALS: BP 138/90; O2SAT 98
[2025-10-11 08:09] VITALS: BP 145/85; TEMP 98.8; O2SAT 97
[2025-10-11 10:10] VITALS: BP 132/85; TEMP 98.1; O2SAT 98
[2025-10-11 15:25] VITALS: BP 134/82; TEMP 99; O2SAT 96
[2025-10-12] MEDS: SODIUM CHLORIDE NASAL 0.65% SPRAY BTL (OCEAN) PRN (13:46)
[2025-10-12 15:32] VITALS: BP 140/78; TEMP 98.2; O2SAT 97
[2025-10-12 20:13] VITALS: BP 140/78; TEMP 98.2; O2SAT 97
[2025-10-13 15:27] VITALS: BP 125/78; TEMP 97.6; O2SAT 97
[2025-10-13] MEDS: GABAPENTIN 100 MG CAP PO SCH (15:35)
[2025-10-13] MEDS: traZODone 100 MG TAB PO SCH (21:21)
[2025-10-14] MEDS: ESCITALOPRAM OXALATE 10 MG TABLET PO SCH (08:58)
[2025-10-14 15:17] VITALS: BP 124/67; TEMP 97.3; O2SAT 98
[2025-10-15 17:29] VITALS: BP 125/71; TEMP 98.2; O2SAT 98
[2025-10-16 06:17] VITALS: BP 122/65; TEMP 97.6
[2025-10-16 14:41] VITALS: BP 122/64; TEMP 97.9; O2SAT 98
[2025-10-17 06:48] VITALS: BP 116/69; TEMP 98.1; O2SAT 95
[2025-10-17 16:08] VITALS: BP 130/64; TEMP 98.2; O2SAT 96
[2025-10-18 06:35] VITALS: BP 119/58; TEMP 97.5; O2SAT 97
[2025-10-18 07:24] LABS: ALT/SGPT 103 U/L (7.0-40); AST/SGOT 29 U/L (<34); CALCIUM LEVEL 8.9 MG/DL (8.5-10.1); CARBON DIOXIDE LEVEL 29 MMOL/L (20-31); CHLORIDE LEVEL 106 MMOL/L (98-107); CREATININE FOR GFR 1.00 MG/DL (0.70-1.30); GLOMERULAR FILTRATION RATE > 90.0 (>60); POTASSIUM SERUM 4.5 MMOL/L (3.5-5.1); SODIUM LEVEL 143 MMOL/L (136-145)
[2025-10-18 15:25] VITALS: BP 120/65; TEMP 98.3; O2SAT 99
[2025-10-19 06:35] VITALS: BP 110/62; TEMP 98; O2SAT 97
[2025-10-19 15:35] VITALS: BP 121/68; TEMP 98.4; O2SAT 99
[2025-10-20 06:23] VITALS: BP 107/63; TEMP 98.3; O2SAT 96
[2025-10-20] MEDS ORDERED: NICOTINE 14 MG/24 HR TRANSDERMAL TD PRN (08:30)
[2025-10-20 18:19] VITALS: BP 130/75; TEMP 98.1
[2025-10-21 06:39] VITALS: BP 131/74; TEMP 97.7; O2SAT 98
[2025-10-21 15:35] VITALS: BP 116/58; TEMP 98.3; O2SAT 94
[2025-10-22 06:16] VITALS: BP 103/61; TEMP 97.8; O2SAT 100
[2025-10-22 15:52] VITALS: BP 157/85; TEMP 97.8; O2SAT 99
[2025-10-22] MEDS: ARIPiprazole 15 MG TAB PO SCH (22:03)
[2025-10-22] MEDS: LORazepam 0.5 MG TAB PO SCH (22:04)
[2025-10-23 06:12] VITALS: BP 115/61; TEMP 98.3; O2SAT 97
[2025-10-23] MEDS: ESCITALOPRAM OXALATE 10 MG TABLET PO SCH (08:50)
[2025-10-23 15:51] VITALS: BP 128/67; TEMP 97.7; O2SAT 97
[2025-10-24 06:30] VITALS: BP 128/74; TEMP 96.5; O2SAT 97
[2025-10-24 17:04] VITALS: BP 135/79; TEMP 98.1; O2SAT 99
[2025-10-24] MEDS: TUBERCULIN PPD 5 UNITS/0.1 ML ID ONE (18:04)
[2025-10-24] MEDS: ACETAMINOPHEN 325 MG TAB PO PRN (20:05)
[2025-10-25 06:26] VITALS: BP 114/64; TEMP 97.1; O2SAT 95
[2025-10-25 15:24] VITALS: BP 132/82; TEMP 98.2; O2SAT 99
[2025-10-26 09:20] LABS: ALT/SGPT 78 U/L (7.0-40); AST/SGOT 38 U/L (<34); CALCIUM LEVEL 9.7 MG/DL (8.5-10.1); CARBON DIOXIDE LEVEL 28 MMOL/L (20-31); CHLORIDE LEVEL 102 MMOL/L (98-107); CREATININE FOR GFR 0.97 MG/DL (0.70-1.30); GLOMERULAR FILTRATION RATE > 90.0 (>60); POTASSIUM SERUM 4.1 MMOL/L (3.5-5.1); SODIUM LEVEL 140 MMOL/L (136-145)
[2025-10-26] MEDS: PPD DOCUMENTATION ENTRY MISC XX SCH (10:05)
[2025-10-26 15:12] VITALS: BP 130/74; TEMP 98.6; O2SAT 98
[2025-10-27 06:32] VITALS: BP 116/63; TEMP 97.7; O2SAT 97
[2025-10-27] MEDS ORDERED: ATIV1TAB10 PO (08:15)
[2025-10-27] MEDS ORDERED: ABIL1TAB12 PO (08:15)
[2025-10-27] MEDS ORDERED: LEXA1TAB PO (08:15)
[2025-10-27] MEDS ORDERED: GABA-1171 PO (08:15)
[2025-10-27] MEDS ORDERED: Sodium Chloride Nasal Spray (08:15)
[2025-10-27] MEDS ORDERED: TRAZ-257 PO (08:15)
== END 2025-10-27 11:11 | DRG 753 ==
LOC: M PSY 14:15
PROVIDERS: ADMIT Internal Medicine; ATTEND Psychiatry & Neurology Psychiatry
DX: F31.81 Bipolar II disorder (principal); Z78.1 Physical restraint status; R45.851 Suicidal ideations; F44.5 Conversion disorder with seizures or convulsions; F41.1 Generalized anxiety disorder; F42.9 Obsessive-compulsive disorder, unspecified; R74.01 Elevation of levels of liver transaminase levels; F41.0 Panic disorder [episodic paroxysmal anxiety]; Z91.51 Personal history of suicidal behavior; Z56.0 Unemployment, unspecified